=== PATIENT | female | born 1945 | race Caucasian/White ===

== ENCOUNTER 2020-11-22 11:47 | Emergency (ER) | payer MEDICARE, OTHER ==
[~2020-11-22] VITALS: Ht 152.4 cm; Wt 63.6 kg
[~2020-11-22 11:47] MED LIST: ARTHROTEC 550 MG/TAB PO; ASPIRIN 81M81 MG/TA2 PO; ASPIRIN E.C. 8181 MG PO; ATORVASTATIN PO; BONIVA2.5 MG PO; DETROL LA2 MG PO; DETROL LA4 PO; KETOCONAZOLE200 MG PO; LEXAPRO10 MG PO; LEXAPRO20 MG PO; MELATONIN3 M1 PO; NAPROXEN D/R500 MG PO; NEXIUM 20MG20 MG PO; NORCO 325 MG-51 TAB PO; NORCO 325 MG-7.1 TAB PO; PRILOSEC20 MG PO; ROXICODONE 55 MG/TAB PO; TOPROL XL 50MG50 MG PO; VITAMIN D1000 IU PO; XARELTO10 MG PO
[2020-11-22 11:54] VITALS: TEMP 98.2
[2020-11-22 12:18] LABS: BASO % 0.6 % (0.0-2.0); EOS # 0.1 (0.0-0.7); EOS % 1.8 % (0-4.0); GRAN # 2.9 (1.4-6.5); GRAN % 56.9 % (42.2-75.2); HEMATOCRIT 43.2 % (37.0-47.0); HEMOGLOBIN 14.4 g/dl (12.5-16.0); LYMPH # 1.8 (1.2-3.4); LYMPH % 35.2 % (20.0-51.0); MEAN CELL VOLUME 86 fl (80.0-100.0); MEAN CORPUSCULAR HEMOGLOBIN 29 pg (27.0-31.0); MEAN CORPUSCULAR HGB CONC 33 g/dl (33.0-37.0); MEAN PLATELET VOLUME 9.7 fl (7.4-10.4); MONO # 0.3 (0.1-0.6); MONO % 5.3 % (1.7-9.3); PLATELET COUNT 183 K/mm3 (130-400); RED BLOOD COUNT 5.05 M/mm3 (4.10-5.30); REDCELL DISTRIBUTION WIDTH-CV 13.5 % (11.5-14.5)
[2020-11-22 12:25] LABS: PROTHROMBIN TIME 11.6 SECONDS (9.7-12.8)
[2020-11-22 12:28] LABS: PARTIAL THROMBOPLASTIN TIME 39.8 SECONDS (26.0-37.0)
[2020-11-22 12:34] LABS: ALANINE AMINOTRANSFERASE 28 U/L (4-34); ALBUMIN 4.3 gm/dL (3.5-5.0); ALKALINE PHOSPHATASE 60 U/L (50-136); ANION GAP 5 mmol/L (7-16); AST,SGOT 33 U/L (15-37); BILIRUBIN,TOTAL 0.5 mg/dL (0.0-1.0); BLOOD UREA NITROGEN 12 mg/dL (7-17); CALCIUM 9.8 mg/dL (8.4-10.2); CARBON DIOXIDE 24 mmol/L (22-30); CHLORIDE 110 mmol/L (98-107); CREATININE, serum 0.71 (0.52-1.25); GLUCOSE 194 mg/dL (74-106); POTASSIUM 3.9 mmol/L (3.4-5.0); SODIUM 139 mmol/L (137-145); TOTAL PROTEIN 7.3 gm/dL (6.4-8.2)
[2020-11-22 13:23] LABS: TROPONIN-I < 0.012 ng/mL (0.000-0.035)
[2020-11-22] MEDS ORDERED: PRILOSEC 20MG20 MG PO (14:15)
[2020-11-22 15:01] VITALS: BP 136/65; PULSE 62
== END 2020-11-22 15:13 | disposition home or self-care (01) ==
LOC: COL.ER 11:47
PROVIDERS: Family Medicine
DX: K21.9 Gastro-esophageal reflux disease without esophagitis (principal); I10 Essential (primary) hypertension; Z79.899 Other long term (current) drug therapy
CPT/HCPCS: C9113